=== PATIENT | male | born 1960 | race Caucasian/White ===

== ENCOUNTER 2023-11-23 11:31 | Observation (INO) ==
[2023-11-23 11:56] LABS: ABS Lymphocytes 1.5 10^3/uL (1.0-4.8); ABS Monocytes 0.8 10^3/uL (0.0-1.1); ABS Neutrophils 6.2 10^3/uL (1.5-7.6); ABS Nucleated RBC 0.01 10^3/ul; Hematocrit 47.5 % (38-53); Hemoglobin 15.9 g/dL (13.2-16.3); Lymphocyte % 17.4 %; Mean Corpuscular Hemoglobin 26.5 pg (27-33); Mean Corpuscular Hgb Conc 33.4 g/dL (31-36); Mean Corpuscular Volume 79.3 fL (80-97); Mean Platelet Volume 7.9 fL (7.5-11.2); Nucleated Red Blood Cells % 0.1 %/100WBC (0.0-0.8); Platelet Count 162 10^3/uL (150-450); Red Blood Count 5.99 10^6/uL (4.06-5.63); Red Cell Distribution Width 17.7 % (12-17); White Blood Count 8.4 10^3/uL (3.6-10.2)
[2023-11-23 12:23] LABS: INR 1.05 (0.83-1.13)
[2023-11-23 12:51] LABS: Albumin 3.9 g/dL (3.2-5.2); Albumin/Globulin Ratio 1.6 (1-3); Calcium 9.3 mg/dL (8.6-10.3); Creatinine, Serum 0.9 mg/dL (0.67-1.17); Globulin 2.5 g/dL (2-4); Potassium 3.7 mmol/L (3.5-5.0); Total Bilirubin 0.6 mg/dL (0.2-1.0); Total Protein 6.4 g/dL (6.4-8.9); eGFR CKD-EPI 94.8 (>60)
[2023-11-23 13:19] LABS: High Sensitivity Troponin 1 Hr 23 pg/mL (<20)
[2023-11-23 13:36] LABS: Magnesium 1.8 mg/dL (1.9-2.7)
[2023-11-23] MEDS: Magnesium Sulfate 2 gm BAG 2 GM/50 ML BAG IVPB ONE (15:06)
[2023-11-23] MEDS: Potassium Chlor 20 meq TAB.ER PO ONE (15:08)
[2023-11-23 19:16] LABS: TSH Ultra Thyroid Stim Horm 0.69 mcIU/mL (0.34-5.60)
[2023-11-23 20:23] LABS: Ferritin 30.8 ng/mL (24-336)
[2023-11-24 06:00] LABS: Calcium 8.8 mg/dL (8.6-10.3); Creatinine, Serum 0.84 mg/dL (0.67-1.17); Magnesium 1.8 mg/dL (1.9-2.7); Potassium 3.8 mmol/L (3.5-5.0); eGFR CKD-EPI 96.8 (>60)
[2023-11-24] MEDS ORDERED: Flumazenil 0.5 mg/5 ml 0.1 MG/ML 5 ml VIAL ONE (07:44)
[2023-11-24] MEDS ORDERED: fentaNYL 100 mcg/2 ml 50 MCG/ML VIAL ONE (07:44)
[2023-11-24] MEDS ORDERED: Naloxone 0.4 mg VIAL 0.4 mg/ml 1 ml VIAL ONE (07:44)
[2023-11-24] MEDS ORDERED: Midazolam 5 mg/5 ml VIAL 1 mg/ml 5 ml VIAL (5 mg) ONE (07:44)
[2023-11-24] MEDS ORDERED: Magnesium Sulfate 2 gm BAG 2 GM/50 ML BAG ONE (07:47)
[2023-11-24] MEDS: Magnesium Sulfate 2 gm BAG 2 GM/50 ML BAG IVPB ONE (07:53)
[2023-11-24] MEDS ORDERED: Flumazenil 0.5 mg/5 ml 0.1 MG/ML 5 ml VIAL IV PRN (08:47)
[2023-11-24] MEDS ORDERED: Naloxone 0.4 mg VIAL 0.4 mg/ml 1 ml VIAL IV PUSH PRN (08:47)
[2023-11-24] MEDS ORDERED: Lisinopril/HCTZ 10/12.5 TA(NF) PO SCH (09:00)
[2023-11-24] MEDS: NS 0.9% 1000 ml BAG 1,000 ML IV ONE (09:19)
[2023-11-24] MEDS: fentaNYL 100 mcg/2 ml 50 MCG/ML VIAL IV SLOW PU ONE (09:22)
[2023-11-24] MEDS: Midazolam 10 mg/10 ml VIAL 1 mg/ml 10 ml VIAL (10 mg) IV SLOW PU ONE (09:23)
[2023-11-24] MEDS: Magnesium Sulfate IV 1GM/100ML 1 GM/100 ML BAG IV ONE (09:40)
[2023-11-24 09:53] VITALS: BP 118/72
[2023-11-24] MEDS: Potassium Chlor 20 meq TAB.ER PO ONE (10:36)
== END 2023-11-24 11:15 | disposition home or self-care (01) ==
LOC: EDHOLD 11:31 → ED 11:31 → SUATTDRO 16:21 → MEDTELE 18:10
PROVIDERS: ADMIT Hospitalist; ATTEND Internal Medicine